=== PATIENT | male | born 1970 | race Caucasian/White ===

== ENCOUNTER 2016-08-15 19:09 | Emergency (ER) | payer BC ==
[2016-08-15 19:30] VITALS: BP 113/62
--- OUTSIDE RECORDS SUMMARY | 2016-08-15 20:44 | XMS REPORT | Continuity of Care Document ---
:1970 Author Organization [facility] ([facility]) [place] [address] Phone [phone] Care Team Providers Name Role Phone Cain Tomas Primary Care Provider [phone] Source Comments This disclosure is being made pursuant to the Care Everywhere program, applicable federal and state laws, and may not contain all informaitonavailable regarding this patient.[facility] ([facility]) Active Allergies and Adverse Reactions No Known Allergies Current Medications Prescription Sig. Disp. Refills Start Date End Date Status moxifloxacin (AVELOX) Take 1 Tab by mouth 6 Tab 0 11/03/2012 Active 400 mg tablet every 24 hours. Indications: BACTERIAL PNEUMONIA albuterol 90 Use 2 Puffs by 1 Inhaler 11 11/03/2012 Active mcg/Actuation inhaler inhalation every 6 hours as needed. Indications: CHRONIC OBSTRUCTIVE PULMONARY DISEASE nicotine 14 mg/24 hr apply 1 Patch on 21 Patch 2 11/03/2012 Active patch the skin daily. Indications: NICOTINE DEPENDENCE mometasone (ASMANEX) Use 1 Puff by 1 Inhaler 11 11/06/2012 Active 220 mcg (120 doses) inhalation 2 times inhaler daily. Indications: SEVERE CHRONIC OBSTRUCTIVE PULMONARY DISEASE formoterol (FORADIL Use 1 Cap by 60 Cap 11 11/06/2012 Active AEROLIZER) 12 mcg inhalation every 12 inhalation capsule hours. Indications: PULMONARY EMPHYSEMA Active Problems Problem Noted Date COPD (chronic obstructive pulmonary disease) 11/02/2012 Tobacco abuse 10/28/2012 Hypoxia 10/28/2012 Polycythemia 10/28/2012 Overview: Hypoxia? Hemoconcentration? Resolved Problems Problem Noted Date Resolved Date Other dyspnea and respiratory abnormality 10/28/2012 11/03/2012 Pneumonia, organism unspecified 10/28/2012 11/03/2012 Respiratory failure with hypercapnia 10/28/2012 11/03/2012 Social History Tobacco Use Types Packs/Day Years Used Date Current Every Day Smoker Cigarettes 1.5 30 Alcohol Use Drinks/Week oz/Week Comments Yes 12 pack on weekends Last Filed Vital Signs Vital Sign Reading Time Taken Blood Pressure 124/80 11/03/2012 8:00 AM CDT Pulse 87 11/03/2012 8:00 AM CDT Temperature 36.5 C (97.7 F) 11/03/2012 8:00 AM CDT Respiratory Rate 20 11/03/2012 8:00 AM CDT Height 1.778 m (5' 10") 11/02/2012 1:00 PM CDT Weight 115.667 kg (255 lb) 11/02/2012 1:00 PM CDT Body Mass Index 36.59 11/02/2012 1:00 PM CDT Oxygen Saturation 93% 11/03/2012 12:40 PM CDT Plan of Care Health Maintenance Due Date Last Done Comments Hepatitis B Vaccine (1 of 3 - Primary Series) 1970 Tdap Vaccine 1979 Lipid Disorder Screening 1986 MMR Vaccine 1986 Td Vaccine 1986 Pneumococcal Vaccine (1 of 1 - PPSV23) 1987 Influenza Vaccine: Seasonal (#1) 01/02/2016 Results from Last 3 Months Not on file
[2016-08-15] MEDS ORDERED: HYDROcodone/ACETAMINOPHEN 1 EACH TABLET PO ONE (21:00)
[2016-08-15] MEDS ORDERED: KETOROLAC TROMETHAMINE 60 MG/2 ML VIAL IM ONE ×2 (21:00→21:19)
--- NOTE | 2016-08-15 21:04 | ERNOTE ---
Back Pain ER HPI Date of Service: 08/15/16 Time Seen by Provider: 08/15/16 20:36 Source: patient Exam Limitations: no limitations Immunizations: IMMUNIZATION HX Immunizations Up to Date Yes History of Influenza Vaccine No Hx Pneumococcal Vaccination No Allergies/Adverse Reactions: Allergies No Known Allergies Allergy (Verified 04/09/16 18:31) Home Medications: HOME MEDICATIONS Glimepiride 4 mg PO DAILY #30 tablet 04/10/16 [Last Taken Unknown] Lancets/Blood Glucose Strips [Fora [id number] Lanct-Str] 1 each MC BID #60 combo..pkg 04/10/16 [Last Taken Unknown] Lisinopril [Zestril] 2.5 mg PO DAILY #30 tablet 04/10/16 [Last Taken Unknown] Metformin HCl [Metformin HCl ER] 1,000 mg PO DAILY #60 [id number] 04/10/16 [ Last Taken Unknown] Cyclobenzaprine HCl [Flexeril] 20 mg PO HS #60 tab 08/15/16 [Last Taken Unknown] Narrative: Here for back pain for two days. Pt states he rearranged furniture and now has back pain. no radiation anywhere. his pain is in the lower back area and bilateral without any radiation, bowel or bladder involvement Review of Systems - Review of Systems Constitutional: Present: no symptoms reported Respiratory: Present: no symptoms reported Cardiology: Present: no symptoms reported Musculoskeletal: Present: See HPI, back pain - Patient's Past Medical History Patient History - Medical: Diabetes Type 2 Patient History - Cardiac/Respiratory: COPD, CPAP/BiPAP Home Use, Sleep Apnea Patient History - Cancer: No Hx of Cancer Patient History - Surgical Procedures: No surgical history Patient History - Other: None - Family History Father Family History - Medical: , Liver Disease - Social History Living Situations: home Abuse History: No History of abuse Psych History: Psychiatric Hx Smoking Status: Current every day smoker Patient requests Smoking Cessation Consult: No Initiate information on Smoking Cessation: No Alcohol Use: occasionally Drug Use: none - Immunizations Immunizations Up to Date: Yes Hx Pneumococcal Vaccination: No History of Influenza Vaccine: No Physical Exam - Physical Exam General Appearance: Present: wd/wn, alert, no apparent distress Respiratory: Present: no respiratory distress, normal breath sounds, no accessory muscle use, chest nontender, lungs clear Cardiovascular/Chest: Present: regular rate, rhythm, no murmur, normal peripheral pulses Back Exam: Present: normal inspection, other - pt has bilateral lumbar paravertebral muscle spasm, noted on exam. He is very tender in the corresponding regions. DTR's are intact and there is no pain upon pressure on spineous processes Extremity Exam: Present: normal inspection, non-tender Neurological Exam: Present: alert, oriented, normal mood/affect, no motor/ sensory deficits ED Progress - Vital Signs Patient's Vital Signs:: I have reviewed the patient's vital signs. Vital Signs: Vital Signs 08/15/16 19:25 Temperature 36.4 C L Pulse Rate 91 Respiratory 18 Rate Blood Pressure 113/62 O2 Sat by Pulse 97 Oximetry - Progress/Reassessment Chief Complaint: Back Pain Departure Clinical Impression: Muscle spasm of back - Departure Disposition: Home self-care Condition: Fair Instructions: Low Back Sprain With Rehab-SportsMed, Muscle Cramps and Spasms, [id number] Referrals: Thang Wheeler MD [Primary Care Provider] - Prescriptions: Cyclobenzaprine HCl [Flexeril] 20 mg PO HS #60 tab
[2016-08-15] MEDS ORDERED: HYDROcodone/ACETAMINOPHEN 1 EACH TABLET ONE (21:19)
== END 2016-08-15 21:47 | disposition home or self-care (01) ==
LOC: ER 19:09
DX: M62.830 Muscle spasm of back (principal); Z72.0 Tobacco use; E11.9 Type 2 diabetes mellitus without complications; X58.XXXA Exposure to other specified factors, initial encounter; Y93.89 Activity, other specified; Y92.9 Unspecified place or not applicable; Y99.9 Unspecified external cause status

== ENCOUNTER 2016-08-20 21:52 | Emergency (ER) | payer BC ==
--- OUTSIDE RECORDS SUMMARY | 2016-08-20 23:20 | XMS REPORT | Continuity of Care Document ---
:1970 Author Organization [facility] ([facility]) [place] [address] Phone [phone] Care Team Providers Name Role Phone Cain Tomas Primary Care Provider [phone] Source Comments This disclosure is being made pursuant to the Care Everywhere program, applicable federal and state laws, and may not contain all informaitonavailable regarding this patient.[facility] ([facility]) Active Allergies and Adverse Reactions No Known [...]
[2016-08-20] MEDS ORDERED: HYDROcodone/ACETAMINOPHEN 1 EACH TABLET PO ONE (23:43)
--- NOTE | 2016-08-20 23:43 | ERNOTE ---
Back Pain ER HPI Presenting Symptoms: other - Back pain for over a week, No recent injury, Has had back pain in the past but not chronic back pain. He was recently moving heavy objects / Source: patient Exam Limitations: no limitations Immunizations: IMMUNIZATION HX Immunizations Up to Date Yes History of Influenza Vaccine No Hx Pneumococcal Vaccination No Allergies/Adverse Reactions: Allergies No Known Allergies Allergy (Verified 04/09/16 18:31) Home Medications: HOME MEDICATIONS Glimepiride 4 mg PO DAILY #30 tablet 04/10/16 [Last Taken Unknown] Lancets/Blood Glucose Strips [Fora [id number] Lanct-Str] 1 each MC BID #60 combo..pkg 04/10/16 [Last Taken Unknown] Lisinopril [Zestril] 2.5 mg PO DAILY #30 tablet 04/10/16 [Last Taken Unknown] Metformin HCl [Metformin HCl ER] 1,000 mg PO DAILY #60 [id number] 04/10/16 [ Last Taken Unknown] Cyclobenzaprine HCl [Flexeril] 20 mg PO HS #60 tab 08/15/16 [Last Taken Unknown] HYDROcodone/ACETAMINOPHEN [Sheldon 5-325] 1 each PO Q6H PRN #12 tablet NS [Last Taken Unknown] Timing: Reports: constant Quality/Severity: Reports: moderate Location of pain: Reports: lower back, radiating to rt thigh/leg Recent Injury?: Reports: no Possible Precipitating Factor: Reports: lifting. Denies: fall/near fall, trauma Modifying Factors - (Improves): Reports: other - Has been on Flexeril . Modifying Factors - (Worsens): Reports: nothing Associated Symptoms: Denies: fever/chills, sweating, constipation/incontinence, nausea/vomiting, problems urinating Prior Treament: Reports: recently seen, treated by physician Review of Systems - Review of Systems Constitutional: Present: no symptoms reported Respiratory: Present: no symptoms reported Cardiology: Present: no symptoms reported Gastrointestinal/Abdominal: Present: no symptoms reported Musculoskeletal: Present: back pain. Absent: neck pain, joint pain, joint swelling Skin: Present: no symptoms reported Neurological: Present: no symptoms reported All Other Systems: All systems neg except as marked - Patient's Past Medical History Patient History - Medical: Diabetes Type 2 Patient History - Cardiac/Respiratory: COPD, CPAP/BiPAP Home Use, Sleep Apnea Patient History - Cancer: No Hx of Cancer Patient History - Surgical Procedures: No surgical history Patient History - Other: None - Family History Father Family History - Medical: , Liver Disease - Social History Living Situations: home Abuse History: No History of abuse Psych History: Psychiatric Hx Smoking Status: Current every day smoker Have you smoked in the past 12 months: Yes Do you dip or chew tobacco: No Patient requests Smoking Cessation Consult: No Initiate information on Smoking Cessation: No Alcohol Use: occasionally Drug Use: none - Immunizations Immunizations Up to Date: Yes Hx Pneumococcal Vaccination: No History of Influenza Vaccine: No Physical Exam - Physical Exam General Appearance: Present: wd/wn, alert, no apparent distress Eye Exam: Normal inspection: bilateral Ears, Nose, Throat: Present: normal ENT inspection Respiratory: Present: no respiratory distress, lungs clear Cardiovascular/Chest: Present: regular rate, rhythm Back Exam: Present: normal inspection, normal range of motion, no CVA tenderness , no vertebral tenderness Extremity Exam: Present: normal inspection, normal range of motion, no edema Neurological Exam: Present: alert, oriented, normal mood/affect, no motor/ sensory deficits Skin Exam: Present: normal color, warm/dry ED Progress - Vital Signs Vital Signs: Vital Signs 08/20/16 23:04 Temperature 36.3 C L Pulse Rate 87 Respiratory 18 Rate Blood Pressure 111/61 O2 Sat by Pulse 97 Oximetry - Progress/Reassessment Chief Complaint: Back Pain Progress:: Improved Departure Clinical Impression: Back pain - Departure Disposition: Home self-care Condition: Good Instructions: Back Pain, Adult Additional Instructions: Ice and rest. Flexeril 10 mg 3 times a day. Take hydrocodone 5 mg by mouth when necessary every 6-8 hours for pain. Follow-up with your doctor for further evaluation and treatment over next 2-4 days. If pain worsens in anyway may return to emergency room. Referrals: Thang Wheeler MD [Primary Care Provider] - Prescriptions: HYDROcodone/ACETAMINOPHEN [Sheldon 5-325] 1 each PO Q6H PRN #12 tablet NS PRN Reason: pain
[2016-08-20] MEDS ORDERED: HYDROcodone/ACETAMINOPHEN 1 EACH TABLET ONE (23:54)
[2016-08-21 02:25] VITALS: BP 106/66
== END 2016-08-21 00:05 | disposition home or self-care (01) ==
LOC: ER 21:52
DX: M54.9 Dorsalgia, unspecified (principal); E11.9 Type 2 diabetes mellitus without complications; F17.210 Nicotine dependence, cigarettes, uncomplicated